=== PATIENT | female | born 1970 ===

== ENCOUNTER 2017-10-12 08:42 | Emergency (ER) | payer OTHER ==
[2017-10-12 08:50] VITALS: BMI 29.8
[2017-10-12 09:02] VITALS: RESP 16
--- NOTE | 2017-10-12 09:34 | ED PDOC ---
HPI: Headache Chief Complaint (Provider): Headaches/Sore throat History Per: Patient History/Exam Limitations: no limitations Onset/Duration Of Symptoms: Days Current Symptoms Are (Timing): Constant Pain Scale Rating Of: 10 Quality: "Pain" Preceeding Symptoms: denies: Visual Disturbances Associated Symptoms: Nausea, Vomiting (one vomit this morning). denies: Photophobia, Blurred Vision Additional Complaint(s): 47 y/o female with PMHx of Migraines headaches, and Gastritis presents to ED complaining of Sore throat, and occipital headaches for 4 days. Patient states that her sore throat started first 4 days ago, associated with difficulty swallowing, then started her headaches in her back of her head, moving to her middle head, constant, minimal relieve with tylenol OTC, aching, now is 10/10, aggravating with moving of her head/neck, and loud sounds, improves when lying down in a dark/quiet room. Also complaining of subjective fevers, chills, nausea , one vomit every morning, poor sleep. Denies chest pain, cough, SOB, abd pain, diarrheas. Reports neck swelling sensation. Denies facial droop, tingling, numbness, weakness. PMD: none Meds: tylenol PRN <Libia Cruz - Last Filed: 10/12/17 17:23> <Sully Lofton - Last Filed: 10/18/17 10:54> Time Seen by Provider: 10/12/17 09:09 Chief Complaint (Nursing): Headache Supervising Attending Note - Supervising Attending Note The Documented history was done by the: Physician Bottom Turner, Attending Physician The documented physical exam was done by the: Physician Bottom Turner, Attending Physician The documented procedures were done by the: Physician Bottom Turner, Attending Physician - Attestation: I have personally seen and examined this patient.: Yes I have fully participated in the care of the patient.: Yes I have reviewed all pertinent clinical information: Yes <Sully Lofton - Last Filed: 10/18/17 10:54> Past Medical History Vital Signs: Last Vital Signs Temp 97.1 F L 10/12/17 08:54 Pulse 63 10/12/17 08:54 Resp 16 10/12/17 08:54 BP 146/90 10/12/17 08:54 Pulse Ox 96 10/12/17 08:54 - Medical History PMH: Gastritis, Gastrointestinal Ulcer, Migraine Denies: Colonic Polyps - Family History Family History: States: Unknown Family Hx - Immunization History Hx Tetanus Toxoid Vaccination: No Hx Influenza Vaccination: No Hx Pneumococcal Vaccination: No <Libia Cruz - Last Filed: 10/12/17 17:23> Reviewed: Historical Data, Nursing Documentation, Vital Signs Vital Signs: Last Vital Signs Temp 97.1 F L 10/12/17 08:54 Pulse 63 10/12/17 08:54 Resp 16 10/12/17 08:54 BP 146/90 10/12/17 08:54 Pulse Ox 96 10/12/17 11:40 - Surgical History Surgical History: No Surg Hx <Sully Lofton - Last Filed: 10/18/17 10:54> - Home Medications Home Medications: Ambulatory Orders Medication Instructions Recorded Omeprazole [PrilOSEC] 40 mg PO DAILY #28 ecc 05/20/15 Ibuprofen [Advil] 2 tab PO DAILY PRN 10/07/15 Omeprazole [Prilosec] 20 mg PO DAILY 10/12/15 Acetaminophen/Butalbital/Caf 1 tab PO Q6 PRN #15 tab 10/12/17 [Fioricet] - Allergies Allergies/Adverse Reactions: Allergies Allergy/AdvReac Type Severity Reaction Status Date / Time No Known Allergies Allergy Verified 10/12/17 09:02 Review of Systems ROS Statement: Except As Marked, All Systems Reviewed And Found Negative (as per HPI) <Libia Cruz - Last Filed: 10/12/17 17:23> Physical Exam - Reviewed Nursing Documentation Reviewed: Yes Vital Signs Reviewed: Yes - Physical Exam Appears: Positive for: Non-toxic, Uncomfortable (because ) Skin: Positive for: Normal Color, Warm, Dry. Negative for: Pallor, Rash, Mottled, Cyanosis Eye Exam: Positive for: EOMI, PERRL. Negative for: Nystagmus, Conjunctival injection, Scleral icterus ENT: Positive for: Pharyngeal Erythema, Other (bilateral congestion of both external auditory canals, left submandibular lymphadenopathies). Negative for: Sinus Pain/Drainage, Nasal Congestion, Tonsillar Exudate Neck: Positive for: Normal, Supple Cardiovascular/Chest: Positive for: Regular Rate, Rhythm. Negative for: Chest Non Tender, Edema, Bradycardia, Tachycardia Respiratory: Positive for: Normal Breath Sounds. Negative for: Decreased Breath Sounds, Accessory Muscle Use, Crackles, Rales, Rhonchi, Wheezing, Respiratory Distress Gastrointestinal/Abdominal: Positive for: Bowel Sounds (present and normal), Soft. Negative for: Tenderness Back: Positive for: Normal Inspection. Negative for: L CVA Tenderness, R CVA Tenderness Extremity: Negative for: Pedal Edema, Calf Tenderness Neurologic/Psych: Positive for: Alert, precision instrument maker II-XII (preserved, grossly normal), Oriented, Gait (normal). Negative for: Motor/Sensory Deficits, Aphasia, Facial Droop <Libia Cruz - Last Filed: 10/12/17 17:23> - Laboratory Results Result Diagrams: 10/12/17 10:10 10/12/17 10:10 - ECG O2 Sat by Pulse Oximetry: 96 <Libia Cruz - Last Filed: 10/12/17 17:23> - Laboratory Results Result Diagrams: 10/12/17 10:10 10/12/17 10:10 <Sully Lofton - Last Filed: 10/18/17 10:54> Medical Decision Making Medical Decision Making: Headaches -CBC, BMP -Toradol 15 mg IV once -Reglan 10 mg IV -re-evaluation Sore throat -Rapid strep test case discussed with Dr. Lofton Re-evaluation -Patient states headaches improved, but still present. Declines LP at this time. -Head CT w/o contrast reported as IMPRESSION: Normal CT of the Head. No intracranial mass, hemorrhage or evidence of acute infarct. -Soft tissue neck CT scan reported as IMPRESSION: Asymmetric distention of only left piriform sinus. Likely artifactual. Please correlate with direct visual inspection. Incidental 5 mm nodule in right lobe of thyroid. Correlate non emergently with thyroid ultrasound examination. No evidence of peritonsillar abscess. Re-evaluation -unclear headaches etiology, but could be 2/2 Migraines, however persist -Tylenol 650 mg PO once -Dexamethasone 10 mg IV once Re-evaluation -still complaining of pain Brain MRI reported as IMPRESSION: Limited examination due to motion artifacts. No definite arterial occlusion or significant stenosis identified throughout the central intracranial arterial circulation. No arteriovascular malformation or aneurysm appreciable grossly. MR Venography of the Brain reported as IMPRESSION: The major venous sinuses throughout the intracranial anatomy appear unremarkable with exception of the inferior sagittal sinus which may be hypoplastic and is not well identified on the current exam including source images. Thrombosis is unlikely given the appearance of the noncontrast head CT 10/12/2017. Contrast MRV may be considered if clinically warranted. Brain MRI w/o contrast reported as IMPRESSION: Unremarkable non contrast enhanced MRI of the brain. re-evaluation Patient headaches improved after Imitrex, Depacote, and Magnesium as per Neuro recommendations. Stable for DC with strongly recommended f/u as outpatient with a PM, and Neurology <Libia Cruz - Last Filed: 10/12/17 17:23> Medical Decision Makin:37 I discussed with the patient twice the need for LP and discussed all benefits and risks but refuses LP at this time. We will evaluate for other possible conditions including Idiopathic intracranial hypertension, CVT, and less likely SAH. MRI brain and MRI head ordered [address] Guerrero who recommends MRI, imitrex, depacote, magnesium , and possible admission if headache persists. <Sully Lofton - Last Filed: 10/18/17 10:54> Disposition - Patient ED Disposition Is Patient to be Admitted: No Discussed With : Sully Lofton - Disposition Disposition Time: 17:16 <Libia Cruz - Last Filed: 10/12/17 17:23> Doctor Will See Patient In The: Office Counseled Patient/Family Regarding: Studies Performed, Diagnosis, Need For Followup - Disposition Disposition: Routine/Home <Sully Lofton - Last Filed: 10/18/17 10:54> - Clinical Impression Clinical Impression: Headache - Disposition Referrals: Marco Antonio Chowdhury MD [Staff Provider] - Condition: GOOD Additional Instructions: Return for worsening. Follow up with your PCP in 2-3 days. Prescriptions: Acetaminophen/Butalbital/Caf [Fioricet] 1 tab PO Q6 PRN #15 tab PRN Reason: Headache Instructions: Headache, Adult (DC) Forms: [facility] ED School/Work Excuse Print Language: [id number]
[2017-10-12 10:17] LABS: BASO % 0.5 % (0.0-2.0); EOS # 0.2 K/uL (0.0-0.7); EOS % 1.8 % (0.0-4.0); HEMOGLOBIN 13.6 g/dL (12.0-16.0); LYMPH % 24.1 % (20.0-40.0); MEAN CELL VOLUME 90.7 fl (81.0-99.0); MEAN CORPUSCULAR HEMOGLOBIN 29.6 pg (27.0-31.0); MEAN CORPUSCULAR HGB CONC 32.7 g/dL (33.0-37.0); MEAN PLATELET VOLUME 9.6 fl (7.2-11.7); MONO # 0.6 K/uL (0.0-0.8); MONO % 7.5 % (0.0-10.0); NEUT # 5.5 K/uL (1.8-7.0); NEUT % 66.1 % (50.0-75.0); RBC 4.59 Mil/uL (3.80-5.20); RED CELL DISTRIBUTION WIDTH 15.6 % (11.5-14.5); WHITE BLOOD COUNT 8.3 K/uL (4.8-10.8)
[2017-10-12 10:34] LABS: BLOOD UREA NITROGEN 10 mg/dl (7-17); CALCIUM 9.3 mg/dL (8.4-10.2); GFR AFRICAN-AMERICAN > 60; GFR NON-AFRICAN AMERICAN > 60
[2017-10-12] MEDS ORDERED: Famotidine 20mg/50ml 20 MG/50 ML BAG IVPB ONE (10:45)
[2017-10-12] MEDS ORDERED: Iohexol 300 100 ML IJ ONE (11:01)
[2017-10-12] MEDS ORDERED: Sodium Chloride 0.9% 50 ML IV ONE (11:01)
--- NOTE | 2017-10-12 11:30 | CT ---
PROCEDURE: CT HEAD WITHOUT CONTRAST. HISTORY: headache COMPARISON: None available. TECHNIQUE: Axial computed tomography images were obtained through the head/brain without intravenous contrast. Radiation dose: Total exam DLP = 822.68 mGy-cm. This CT exam was performed using one or more of the following dose reduction techniques: Automated exposure control, adjustment of the mA and/or kV according to patient size, and/or use of iterative reconstruction technique. FINDINGS: HEMORRHAGE: No intracranial hemorrhage. BRAIN: No mass effect or edema. No atrophy or chronic microvascular ischemic changes. VENTRICLES: Unremarkable. No hydrocephalus. CALVARIUM: Unremarkable. PARANASAL SINUSES: Unremarkable as visualized. No significant inflammatory changes. MASTOID AIR CELLS: Unremarkable as visualized. No inflammatory changes. OTHER FINDINGS: None. IMPRESSION: Normal CT of the Head. No intracranial mass, hemorrhage or evidence of acute infarct.
--- NOTE | 2017-10-12 11:41 | CT ---
PROCEDURE: CT NECK WITH CONTRAST HISTORY: throat pain neck pain COMPARISON: None TECHNIQUE: CT of the neck with intravenous contrast. Coronal and sagittal reformats generated. Intravenous contrast dose: 95 mL Omnipaque 300 Radiation dose: DLP 507.69 mGy-cm This CT exam was performed using one or more of the following dose reduction techniques: Automated exposure control, adjustment of the mA and/or kV according to patient size, and/or use of iterative reconstruction technique. FINDINGS: NASOPHARYNX: Unremarkable. SUPRAHYOID NECK: Unremarkable oropharynx, oral cavity, parapharyngeal space and retropharyngeal space. INFRAHYOID NECK: Larynx unremarkable. There is asymmetric distention of only the left piriform sinus. Right piriform sinus is not distended. Please correlate with direct visual inspection. Likely artifact. MASS: None. GLANDS: Parotid and submandibular glands unremarkable. Thyroid normal size. 5 mm nodule in right lobe of thyroid. Correlate with thyroid ultrasound examination. LYMPH NODES: Shotty subcentimeter level 1 and 2 cervical nodes. No significant cervical lymphadenopathy. CERVICAL SPINE: No fracture or focal lesion. VASCULAR STRUCTURES: Unremarkable. OTHER FINDINGS: None. IMPRESSION: Asymmetric distention of only left piriform sinus. Likely artifactual. Please correlate with direct visual inspection. Incidental 5 mm nodule in right lobe of thyroid. Correlate non emergently with thyroid ultrasound examination. No evidence of peritonsillar abscess.
[2017-10-12] MEDS ORDERED: Dexamethasone 10 MG in Sodium Chloride 0.9% 50 ML IV ONE (12:27)
[2017-10-12] MEDS ORDERED: Dexamethasone 4 mg/1 ml ONE (13:13)
[2017-10-12] MEDS ORDERED: Valproate 500 MG in Sodium Chloride 0.9% 100 ML IVPB ONE (15:16)
[2017-10-12] MEDS ORDERED: Magnesium Sulfate 2 gm/50 ml 2 GM/50 ML BAG IVPB ONE (15:17)
[2017-10-12] MEDS ORDERED: Magnesium Sulfate 2 gm/50 ml 2 GM/50 ML BAG ONE (16:09)
--- NOTE | 2017-10-12 16:28 | MRI ---
PROCEDURE: MRI BRAIN WITHOUT CONTRAST HISTORY: headache COMPARISON: Noncontrast head CT 10/12/2017. TECHNIQUE: Multiplanar, multisequence MR images of the brain were obtained without intravenous contrast enhancement. FINDINGS: HEMORRHAGE: None DWI: No evidence of an acute or early subacute infarction. BRAIN PARENCHYMA: Intrinsic signal throughout the magana and white matter structures above below the tentorium appears within normal limits including the brainstem. There is no mass effect, parenchymal edema or loss of the corticomedullary differentiation. Midline brain anatomy appears within normal limits including the corpus callosum, brainstem and craniocervical junction. There is no suspicious extra-axial fluid collection identified. VENTRICLES: Unremarkable. No hydrocephalus. CRANIUM: Unremarkable. ORBITS: Grossly unremarkable. PARANASAL SINUSES/MASTOIDS: Clear VASCULAR SYSTEM: Skull base flow voids intact. OTHER FINDINGS: None. IMPRESSION: Unremarkable non contrast enhanced MRI of the brain.
--- NOTE | 2017-10-12 16:32 | MRI ---
PROCEDURE: Magnetic Resonance Angiography Brain HISTORY: headache COMPARISON: None available. TECHNIQUE: 3D time of flight MR angiography of the intracranial arteries was performed. Rotating maximum intensity projection images were generated. FINDINGS: Motion artifacts degrade reconstructed datasets significantly. Evaluation is based primarily on source images. INTERNAL CAROTID ARTERIES: The skull base, petrous, cavernous and supraclinoid segments are bilaterally patent. ANTERIOR CEREBRAL ARTERIES: A1 and A2 segments are widely patent. Smaller distal branches limited in evaluation. MIDDLE CEREBRAL ARTERIES: M1 and M2 segments are patent. Perisylvian branches appear patent though limited in evaluation due to motion artifact. POSTERIOR CIRCULATION: Basilar Artery: Unremarkable. Distal Vertebral Arteries: Left dominant vertebrobasilar circulation. Posterior Cerebral Arteries: Unremarkable. Posterior Inferior Cerebellar Arteries: Unremarkable. ANEURYSM/ VASCULAR MALFORMATIONS: None. OTHER FINDINGS: None. IMPRESSION: Limited examination due to motion artifacts. No definite arterial occlusion or significant stenosis identified throughout the central intracranial arterial circulation. No arteriovascular malformation or aneurysm appreciable grossly.
--- NOTE | 2017-10-12 16:50 | MRI ---
PROCEDURE: MR Venography of the Brain HISTORY: HEADACHES COMPARISON: Noncontrast brain MRI 10/12/2017. TECHNIQUE: 2D time of flight venography of the brain was performed. Rotating MIP images of the intracranial veins were generated. FINDINGS: SUPERFICIAL VEINS: Superior Sagittal Sinus: Patent. Inferior Sagittal Sinus:Not clearly identified and may be hypoplastic. Ultimately, its evaluation is indeterminate. Transverse Sinuses: Bilaterally Patent. Sigmoid Sinuses:Bilaterally Patent. DEEP VEINS: Internal Cerebral Veins: Bilaterally Patent. Vein of Greg: Patent. Straight Sinus: Patent. IMPRESSION: The major venous sinuses throughout the intracranial anatomy appear unremarkable with exception of the inferior sagittal sinus which may be hypoplastic and is not well identified on the current exam including source images. Thrombosis is unlikely given the appearance of the noncontrast head CT 10/12/2017. Contrast MRV may be considered if clinically warranted.
[2017-10-12 18:40] VITALS: BP 120/70; PULSE 72; TEMP 98; O2SAT 98
[2017-10-12 19:11] LABS: BARBITURATES, UR NEGATIVE (NEGATIVE); BENZODIAZEPINES, UR NEGATIVE (NEGATIVE); OPIATES, UR NEGATIVE (NEGATIVE); PHENCYCLIDINE, UR NEGATIVE (NEGATIVE)
== END 2017-10-12 18:40 | disposition home or self-care (01) ==
LOC: H.ER 08:42
DX: R51 Headache (principal); R13.10 Dysphagia, unspecified; E04.1 Nontoxic single thyroid nodule
CPT/HCPCS: 70450; 70491; 70544; 70551; 80048; 80324; 80345; 80346; 80349; 80353; 80358; 80361; 83992; 85025; 87070; 87430; 96365; 96367; 96372; 96375; 99285; J1100; J1885; J2765; J3030; Q9967

== ENCOUNTER 2018-05-05 11:21 | Emergency (ER) | payer SELFPAY ==
[2018-05-05 11:21] VITALS: BMI 29.8
[2018-05-05 11:52] VITALS: RESP 18; O2SAT 98
[2018-05-05] MEDS: Sodium Chloride 0.9% 1,000 ML IV SCH ×2 (13:46→16:04)
[2018-05-05 13:49] LABS: BASO % 0.5 % (0.0-2.0); EOS # 0.2 K/uL (0.0-0.7); EOS % 2.7 % (0.0-4.0); HEMOGLOBIN 13.4 g/dL (12.0-16.0); LYMPH # 2.7 K/uL (1.0-4.3); LYMPH % 34.9 % (20.0-40.0); MEAN CELL VOLUME 89.3 fl (81.0-99.0); MEAN CORPUSCULAR HEMOGLOBIN 29.4 pg (27.0-31.0); MEAN PLATELET VOLUME 9.8 fl (7.2-11.7); MONO # 0.6 K/uL (0.0-0.8); MONO % 8.1 % (0.0-10.0); NEUT # 4.2 K/uL (1.8-7.0); NEUT % 53.8 % (50.0-75.0); NRBC % 0.1 % (0.0-0.0); RBC 4.57 Mil/uL (3.80-5.20); RED CELL DISTRIBUTION WIDTH 15.6 % (11.5-14.5); WHITE BLOOD COUNT 7.8 K/uL (4.8-10.8)
--- NOTE | 2018-05-05 13:54 | ED PDOC ---
HPI: Headache Time Seen by Provider: 05/05/18 12:16 Chief Complaint (Nursing): Upper Extremity Problem/Injury Chief Complaint (Provider): Dizziness, Headache, Right Arm Pain History Per: Patient History/Exam Limitations: no limitations Onset/Duration Of Symptoms: Days (x1) Current Symptoms Are (Timing): Still Present Additional Complaint(s): 47 year old female presents to the ED for evaluation s/p falling yesterday. She reports that yesterday morning while walking to work, she felt dizzy and fell down, sustaining an injury to his right shoulder and elbow. Denies any prior elbow or shoulder injury; notes pain worsens with movement. She notes a history of intermittent dizziness and headaches, but has never been worked up for these complaints before. Currently, she is complaining of slight dizziness, headache, and right arm pain. Otherwise denies abdominal pain, vomiting, LOC, fever, visual changes, recent travel, numbness/weakness, and sick contacts. Last me dication taken was Tylenol yesterday around noon. LNMP: 03/26/2018, normally irregular PMD: Clinic Past Medical History Reviewed: Historical Data, Nursing Documentation, Vital Signs Vital Signs: Last Vital Signs Temp 99.4 F 05/05/18 11:51 Pulse 88 05/05/18 11:51 Resp 18 05/05/18 11:51 BP 132/80 05/05/18 11:51 Pulse Ox 98 05/05/18 11:51 - Medical History PMH: Gastritis, Gastrointestinal Ulcer, Migraine - Surgical History Surgical History: (x1) - Family History Family History: States: Unknown Family Hx - Social History Current smoker - smoking cessation education provided: No Alcohol: None Drugs: Denies - Home Medications Home Medications: Ambulatory Orders Medication Instructions Recorded Omeprazole [PrilOSEC] 40 mg PO DAILY #28 ecc 05/20/15 Ibuprofen [Advil] 2 tab PO DAILY PRN 10/07/15 Omeprazole [Prilosec] 20 mg PO DAILY 10/12/15 Acetaminophen/Butalbital/Caf 1 tab PO Q6 PRN #15 tab 10/12/17 [Fioricet] Acetaminophen [Acetaminophen 8 650 mg PO Q8 PRN #21 tablet.er 05/05/18 Hour] Meloxicam [Mobic] 15 mg PO DAILY PRN #10 tab 01/10/19 RX: Meclizine [Meclizine*] 25 mg PO Q6 PRN #12 tab 05/05/18 - Allergies Allergies/Adverse Reactions: Allergies Allergy/AdvReac Type Severity Reaction Status Date / Time No Known Allergies Allergy Verified 10/12/17 09:02 Review of Systems ROS Statement: Except As Marked, All Systems Reviewed And Found Negative Constitutional: Negative for: Fever Eyes: Negative for: Vision Change Gastrointestinal: Negative for: Vomiting, Abdominal Pain Musculoskeletal: Positive for: Shoulder Pain (right), Arm Pain (right elbow, worse with movement) Neurological: Positive for: Headache, Dizziness Physical Exam - Reviewed Nursing Documentation Reviewed: Yes Vital Signs Reviewed: Yes - Physical Exam Comments: GENERALIZED APPEARANCE: Patient is awake, alert, oriented x3 in no acute distress. Resting comfortably, on cell phone. SKIN: Warm, dry; (-) cyanosis. HEAD: (-) scalp swelling or tenderness (-) palpable deformity (-) scalp hematoma EYES: (-) conjunctival pallor. ENMT: Mucous membranes moist. TMs: (-) bulging, (-) erythema. Ear canals patent bilaterally, (-) cerumen impaction. Pharynx: clear, uvula midline (-) erythema (-) exudate. Nares patent. NECK: Supple, FROM (-) tenderness, (-) stiffness, (-) lymphadenopathy. CHEST AND RESPIRATORY: (-) rales, (-) rhonchi, (-) wheezes; breath sounds equal bilaterally. Respirations even and nonlabored. HEART AND CARDIOVASCULAR: (-) irregularity ABDOMEN AND GI: Soft; (-) distention, (-) tenderness, (-) rebound, (-) guarding, (-) palpable masses, (-) flank tenderness. RIGHT UPPER EXTREMITY: (+) diffuse tenderness to olecranon and posterior elbow with decreased ROM secondary to pain, (+) mild edema, (-) skin break, (-) erythema, (-) ecchymosis. Right wrist, forearm, and hand non tender with full ROM, all digits included. (+) Tenderness to anterior and lateral aspects of shoulder with decreased extension and abduction secondary to pain, (-) clavicle tenderness, (-) crepitus, (-) effusion, (-) erythema, (-) skin break, (-) ecchymosis. Sensation intact throughout; (+) pulses. NEURO AND PSYCH: Mental status as above. language instructor: (-) nystagmus; Pupils equal and reactive, EOMI and painless (-) facial asymmetry; (-) dysarthria; tongue and uvula midline. Strength symmetric. Gait: steady. Speech: clear. - Laboratory Results Result Diagrams: 05/05/18 13:30 05/05/18 13:30 Urine POC: Negative Urine dip results: Positive for: Blood (small), Protein (trace). Negative for: Leukocyte Esterase, Nitrate, Ketones, Glucose, Bilirubin - ECG O2 Sat by Pulse Oximetry: 98 (RA) Pulse Ox Interpretation: Normal Medical Decision Making Medical Decision Making: Initial Impression: dizziness, headache, right arm pain s/p fall Time: 1300 Initial Plan: --CT Head without contrast --EKG --CMP --U-preg --U-dip --CBC with differential --PT / PTT --Antivert 25mg PO --Normal saline IV --Tylenol 650mg PO --Accucheck --Right elbow XR --Right shoulder XR --Influenza A B swab EKG: NSR at 69 bpm, (-) acute ST changes, QTc 413 as read by KELSI Darden. 1335 Udip reviewed. U/A and U/C ordered. Upreg: negative [address] Accucheck: [address] Head FINDINGS: HEMORRHAGE: No intracranial hemorrhage. BRAIN: No mass effect or edema. No atrophy or chronic microvascular ischemic changes. VENTRICLES: Unremarkable. No hydrocephalus. CALVARIUM: Unremarkable. PARANASAL SINUSES: Unremarkable as visualized. No significant inflammatory changes. MASTOID AIR CELLS: Unremarkable as visualized. No inflammatory changes. OTHER FINDINGS: None. IMPRESSION: No acute intracranial abnormalities. No significant findings to account for the clinical presentation. No significant interval change compared to the prior examination(s). 1440 Patient resting comfortably, asleep. Awaiting XR imaging. Influenza: negative 1620 Shoulder XR reviewed, radiology report follows Date of service: 05/05/2018 PROCEDURE: Radiographs of the Right Shoulder HISTORY: s/p fall COMPARISON: No prior. FINDINGS: BONES: No fracture seen. JOINTS: Glenohumeral and acromioclavicular minimal arthrosis. SOFT TISSUES: Normal. OTHER FINDINGS: A 4 to 5 mm calcification compatible with either calcific rotator cuff tendinopathy and/or calcific bursitis is suggested. IMPRESSION: No fracture or dislocation. Right calcific rotator cuff tendinopathy versus calcific bursitis. Elbow XR reviewed, radiology report follows Date of service: 05/05/2018 PROCEDURE: Radiographs of the right elbow. HISTORY: s/p fall, joint pain COMPARISON: No prior. FINDINGS: BONES: No fracture seen. Some radial head spurring and proximal ulnar spurring noted. JOINTS: Normal. No osteoarthritis. SOFT TISSUES: Normal. JOINT EFFUSION: There is lifting of the faint anterior fat pad suggested. However no gross fractures appreciated. The chronicity of this suspect anterior elbow joint effusion is unknown. No gross posterior elbow joint effusion is appreciated. OTHER FINDINGS: None. IMPRESSION: No discrete radiographic fracture appreciated. An anterior elbow joint effusion however is suspect and the senescent arthropathic changes are noted in the elbow. If clinically indicated, consider further evaluation with MRI of the right elbow. CT upper extremity without contrast ordered for further evaluation of possible occult elbow fracture. [address] Upper Extrem. FINDINGS: Numerous well corticated osseous excrescence is identified including several adjacent to the medial epicondyle. Smaller findings noted adjacent to the radius/radial head. There is a small joint effusion identified. No evidence of displaced radial head fracture. Radiohumeral and electro non-humeral relationships are maintained. IMPRESSION: Small joint effusion. Multiple well corticated osseous excrescence is likely the sequela of prior trauma. No depressed or obvious radial head fracture identified. 1800 On re-evaluation, patient reports improvement of symptoms. On exam, patient remains AAOx3, in no acute distress. Lungs clear to auscultation, cardiac RRR, repeat neuro exam shows no focal findings. Vitals stable. Lab/Diagnostic results d/w the patient in great detail. Diagnosis of dizziness, headache, acute elbow and shoulder pain s/p fall d/w the patient. Based on history, exam and diagnostic results, plan will be for outpatient follow up with PMD/ortho/neuro. Patient instructed to follow-up with pmd / referral provided / the clinic in 1- 2 days without fail. Advised to take medication as prescribed. Return to the emergency room at any time for any new or worsening symptoms. Patient states she fully agrees with and understands discharge instructions. States that she agrees with the plan and disposition. Verbalized and repeated discharge instructions and plan. I have given the patient opportunity to ask any additional questions. Scribe Attestation: Documented by Zee Patterson, acting as a scribe for Libia Darden PA-C. Provider Scribe Attestation: All medical record entries made by the Scribe were at my direction and personally dictated by me. I have reviewed the chart and agree that the record accurately reflects my personal performance of the history, physical exam, medical decision making, and the department course for this patient. I have also personally directed, reviewed, and agree with the discharge instructions and disposition. Disposition - Clinical Impression Clinical Impression: Elbow effusion, Elbow pain, Shoulder pain, acute, Fall, Dizziness, Headache - Patient ED Disposition Is Patient to be Admitted: No Counseled Patient/Family Regarding: Studies Performed, Diagnosis, Need For Followup, Rx Given - Disposition Referrals: [facility] [Outside] Joseph Verma MD [Medical Doctor] - Bridger Oseguera MD [Medical Doctor] - Disposition: Routine/Home Disposition Time: 18:00 Condition: STABLE Additional Instructions: La atencin mdica de emergencia que recibi hoy se dirigi a akbar sntomas agudos. Si le recetaron algn medicamento, llnelo y tmelo segn las indicac iones. Los sntomas pueden tardar varios whitney en resolverse. Regrese al Departamento de Emergencias si akbar sntomas empeoran, no mejoran o si tiene otros problemas. Comunquese con yanez mdico dentro de 2 whitney para juan francisco nueva evaluacin y orquidea un seguimiento o llame a rita de los mdicos / clnicas a los que parsons sido referido y que figuran en el formulario de Informacin de visita al paciente que se incluye en yanez paquete de eliel. Lleve todos los documentos que le entregaron al momento del eliel junto con todos los medicamentos que est tomando para yanez visita de seguimiento. Nuestro tratamiento no puede reemplazar la atencin mdica continua por parte de un proveedor de atencin primaria (PCP) fuera del departamento de emergencias. Prescriptions: Acetaminophen [Acetaminophen 8 Hour] 650 mg PO Q8 PRN #21 tablet.er PRN Reason: Pain, Moderate (4-7) RX: Meclizine [Meclizine*] 25 mg PO Q6 PRN #12 tab PRN Reason: Dizziness Meloxicam [Mobic] 15 mg PO DAILY PRN #10 tab PRN Reason: Pain, Moderate (4-7) Instructions: Headache, Adult, Vertigo (a Type of Dizziness) (DC), Contusion (DC), Dizziness, Nonvertigo, (DC), Elbow Sprain (DC), Shoulder Pain (DC) Forms: [employer] (Korean) Print Language: CITIZ[place] OF [place] - POA Present On Arrival: Falls Or Trauma (yesterday) Results - Diagnostic Imaging Results Radiology Results Elbow X-Ray 05/05/18 13:03 IMPRESSION: No discrete radiographic fracture appreciated. An anterior elbow joint effusion however is suspect and the senescent arthropathic changes are noted in the elbow. If clinically indicated, consider further evaluation with MRI of the right elbow Head CT 05/05/18 13:03 IMPRESSION: No acute intracranial abnormalities. No significant findings to account for the clinical presentation. No significant interval change compared to the prior examination(s). Shoulder X-Ray 05/05/18 13:03 IMPRESSION: No fracture or dislocation. Right calcific rotator cuff tendinopathy versus calcific bursitis. Upper Extremity CT 05/05/18 16:24 IMPRESSION: Small joint effusion. Multiple well corticated osseous excrescence is likely the sequela of prior trauma. No depressed or obvious radial head fracture identified. - Lab Results Lab Results: 05/05/18 05/05/18 05/05/18 13:30 13:30 13:30 WBC RBC Hgb Hct MCV MCH MCHC RDW Plt Count MPV Neut % (Auto) Lymph % (Auto) [place] % (Auto) Eos % (Auto) Baso % (Auto) Neut # (Auto) Lymph # (Auto) [place] # (Auto) Eos # (Auto) Baso # (Auto) PT 10.6 INR 0.9 APTT 31.8 Sodium 133 Potassium 3.5 L Chloride 100 Carbon Dioxide 29 Anion Gap 8 L BUN 11 Creatinine 0.6 L Est GFR ( Amer) > 60 Est GFR (Non-Af Amer) > 60 Random Glucose 91 Calcium 9.2 Total Bilirubin 0.2 AST 31 ALT 29 Alkaline Phosphatase 87 Total Protein 8.1 Albumin 4.4 Globulin 3.7 Albumin/Globulin Ratio 1.2 Influenza Typ A,B (EIA) Negative for flu a/b 05/05/18 13:30 WBC 7.8 RBC 4.57 Hgb 13.4 Hct 40.8 MCV 89.3 MCH 29.4 MCHC 33.0 RDW 15.6 H Plt Count 233 MPV 9.8 Neut % (Auto) 53.8 Lymph % (Auto) 34.9 [place] % (Auto) 8.1 Eos % (Auto) 2.7 Baso % (Auto) 0.5 Neut # (Auto) 4.2 Lymph # (Auto) 2.7 [place] # (Auto) 0.6 Eos # (Auto) 0.2 Baso # (Auto) 0.0 PT INR APTT Sodium Potassium Chloride Carbon Dioxide Anion Gap BUN Creatinine Est GFR ( Amer) Est GFR (Non-Af Amer) Random Glucose Calcium Total Bilirubin AST ALT Alkaline Phosphatase Total Protein Albumin Globulin Albumin/Globulin Ratio Influenza Typ A,B (EIA)
[2018-05-05 13:55] LABS: INR 0.9; PROTHROMBIN TIME 10.6 Seconds (9.8-13.1)
[2018-05-05 13:57] LABS: PARTIAL THROMBOPLASTIN TIME 31.8 Seconds (25.6-37.1)
[2018-05-05 13:59] LABS: ALB/GLOB RATIO 1.2 (1.0-2.1); ALBUMIN 4.4 g/dL (3.5-5.0); ALT/SGPT 29 U/L (9-52); AST/SGOT 31 U/L (14-36); BLOOD UREA NITROGEN 11 mg/dl (7-17); CALCIUM 9.2 mg/dL (8.4-10.2); GFR NON-AFRICAN AMERICAN > 60
--- NOTE | 2018-05-05 14:44 | CT ---
Date of service: 05/05/2018 PROCEDURE: CT HEAD WITHOUT CONTRAST. HISTORY: Dizziness, headache. COMPARISON: 10/12/2017. TECHNIQUE: Axial computed tomography images were obtained through the head/brain without intravenous contrast. Supplemental Coronal and Sagittal projections created and reviewed. Radiation dose: Total exam DLP = 800.25 mGy-cm. This CT exam was performed using one or more of the following dose reduction techniques: Automated exposure control, adjustment of the mA and/or kV according to patient size, and/or use of iterative reconstruction technique. FINDINGS: HEMORRHAGE: No intracranial hemorrhage. BRAIN: No mass effect or edema. No atrophy or chronic microvascular ischemic changes. VENTRICLES: Unremarkable. No hydrocephalus. CALVARIUM: Unremarkable. PARANASAL SINUSES: Unremarkable as visualized. No significant inflammatory changes. MASTOID AIR CELLS: Unremarkable as visualized. No inflammatory changes. OTHER FINDINGS: None. IMPRESSION: No acute intracranial abnormalities. No significant findings to account for the clinical presentation. No significant interval change compared to the prior examination(s).
--- NOTE | 2018-05-05 16:27 | RAD ---
Date of service: 05/05/2018 PROCEDURE: Radiographs of the right elbow. HISTORY: s/p fall, joint pain COMPARISON: No prior. FINDINGS: BONES: No fracture seen. Some radial head spurring and proximal ulnar spurring noted. JOINTS: Normal. No osteoarthritis. SOFT TISSUES: Normal. JOINT EFFUSION: There is lifting of the faint anterior fat pad suggested. However no gross fractures appreciated. The chronicity of this suspect anterior elbow joint effusion is unknown. No gross posterior elbow joint effusion is appreciated. OTHER FINDINGS: None. IMPRESSION: No discrete radiographic fracture appreciated. An anterior elbow joint effusion however is suspect and the senescent arthropathic changes are noted in the elbow. If clinically indicated, consider further evaluation with MRI of the right elbow
--- NOTE | 2018-05-05 16:28 | RAD ---
Date of service: 05/05/2018 PROCEDURE: Radiographs of the Right Shoulder HISTORY: s/p fall COMPARISON: No prior. FINDINGS: BONES: No fracture seen. JOINTS: . Glenohumeral and acromioclavicular minimal arthrosis. SOFT TISSUES: Normal. OTHER FINDINGS: A 4 to 5 mm calcification compatible with either calcific rotator cuff tendinopathy and/or calcific bursitis is suggested. IMPRESSION: No fracture or dislocation. Right calcific rotator cuff tendinopathy versus calcific bursitis.
--- NOTE | 2018-05-05 18:02 | CT ---
Date of service: 05/05/2018 PROCEDURE: Below good with of thorax by a all ill-defined not a problem thanks a lot duct edema HISTORY: r/o elbow fracture COMPARISON: May 05, 2018 right elbow radiographs. TECHNIQUE: 2.5 mm axial acquisition and display. Coronal and sagittal reconstructions. Dose report (mGy-cm): 118.75 FINDINGS: Numerous well corticated osseous excrescence is identified including several adjacent to the medial epicondyle. Smaller findings noted adjacent to the radius/radial head. There is a small joint effusion identified. No evidence of displaced radial head fracture. Radiohumeral and electro non-humeral relationships are maintained. IMPRESSION: Small joint effusion. Multiple well corticated osseous excrescence is likely the sequela of prior trauma. No depressed or obvious radial head fracture identified.
[2018-05-05 18:12] VITALS: BP 123/88; PULSE 72; TEMP 98
--- NOTE | 2018-05-05 20:31 | CARD ---
APPROVED REPORT Date of service: 05/05/2018 EKG Measurement Heart [id number] <Conclusion> Normal sinus rhythm Normal ECG
== END 2018-05-05 18:16 | disposition home or self-care (01) ==
LOC: H.ER 11:21
DX: M25.421 Effusion, right elbow (principal); M25.511 Pain in right shoulder; R51 Headache; W19.XXXA Unspecified fall, initial encounter; Y93.01 Activity, walking, marching and hiking; Y92.480 Sidewalk as the place of occurrence of the external cause
CPT/HCPCS: 70450; 73030; 73080; 73200; 80053; 81025; 85025; 85610; 85730; 87086; 87804; 93005; 99284; J7040